=== PATIENT | female | born 1980 | race Hispanic/Latino ===

== ENCOUNTER 2020-06-06 13:40 | Emergency (ER) | payer SELFPAY ==
[2020-06-06 14:43] LABS: Bilirubin Negative (Negative); Blood, Urine Negative (Negative); Clarity Clear (Clear); Glucose, Urine (Dipstick) Normal (Negative); Ketone, Urine Negative (Negative); Leukocyte Negative Leu/uL (Negative); Nitrite Negative (Negative); Protein, Urine (Dipstick) Negative (Neg-Trace); Specific Gravity, Urine 1.007 (1.002-1.036); Urobilinogen Normal mg/dL (Less than 2)
[2020-06-06 15:05] LABS: #Basophils 0.1 thou/uL (0.0-0.2); #Eosinphils 0.1 thou/uL (0.0-0.7); #Lymphocytes 1.7 thou/uL (1.20-3.40); #Monocytes 0.3 thou/uL (0.11-0.59); #Neutrophils 1.7 thou/uL (1.40-6.50); %Basophils 1.6 % (0.0-1.0); %Eosinophils 1.3 % (0.0-10.0); %Lymphocytes 43.4 % (21.0-51.0); %Neutrophils 44.7 % (42.0-75.0); Hemoglobin 13.5 g/dL (12.0-16.0); Mean Corpuscular HGB CONC 33.1 g/dL (32.0-36.0); Mean Corpuscular Hemoglobin 29.6 pg (27.0-31.0); Mean Corpuscular Volume 89.5 fL (78.0-98.0); Mean Platelet Volume 9.5 fL (7.4-10.4); Platelet Count 256 thou/uL (130-400); Red Blood Cell (RBC) Count 4.55 mill/uL (4.20-5.40); White Blood Cell (WBC) Count 3.8 thou/uL (4.8-10.8)
[2020-06-06 15:10] LABS: BHCG - Serum Negative (NEGATIVE); Pregs Control Background? CLEAR/WHITE (CLR/WHITE); Pregs Control Bar Appear? YES (CONTROL BAR)
[2020-06-06 15:35] LABS: ALT (SGPT) 61 U/L (8-55); AST (SGOT) 67 U/L (5-34); Albumin 4.1 g/dL (3.5-5.0); Alkaline Phosphatase 103 U/L (40-110); Anion Gap 11 mmol/L (10-20); BUN (Urea Nitrogen) 11 mg/dL (7.0-18.7); Bilirubin, Total 0.6 mg/dL (0.2-1.2); Calc. Creatinine Clearance 0 mL/min (70-130); Carbon Dioxide 27 mmol/L (22-29); Chloride 104 mmol/L (98-107); Estimated GFR-MDRD 73; Globulin 2.9 g/dL (2.4-3.5); Glucose 86 mg/dL (70-105); Potassium 3.8 mmol/L (3.5-5.1); Sodium 138 mmol/L (136-145)
[2020-06-06 16:27] LABS: Acetaminophen Less than 6.0 mcg/mL (10.0-30.0); Alcohol Less than 10 mg/dL (Less than 10); Salicylate Less than 8.0 mg/dL (15.0-30.0)
== END 2020-06-06 17:18 | disposition home or self-care (01) ==
LOC: ERS 13:40
DX: E86.0 Dehydration (principal); F15.10 Other stimulant abuse, uncomplicated; F32.9 Major depressive disorder, single episode, unspecified; F43.10 Post-traumatic stress disorder, unspecified
CPT/HCPCS: 36415; 80053; 80307; 81003; 84703; 85025; 93005; 96372

== ENCOUNTER 2020-07-10 18:10 | Emergency (ER) | payer SELFPAY ==
[2020-07-10] MEDS ORDERED: Lorazepam 2 MG/ML VIAL ONE (18:28)
== END 2020-07-10 21:47 | disposition home or self-care (01) ==
LOC: ERS 18:10
DX: F41.9 Anxiety disorder, unspecified (principal); F32.9 Major depressive disorder, single episode, unspecified; I10 Essential (primary) hypertension; F98.8 Other specified behavioral and emotional disorders with onset usually occurring in childhood and adolescence
CPT/HCPCS: 96372; 99281; J2060

== ENCOUNTER 2020-08-07 10:37 | Emergency (ER) | payer SELFPAY | END 2020-08-07 14:13 | disposition home or self-care (01) | LOC: ERS 10:37 | DX: J06.9 Acute upper respiratory infection, unspecified (principal); I10 Essential (primary) hypertension | CPT/HCPCS: 87081; 87430; 99283 ==

== ENCOUNTER 2020-08-11 20:44 | Emergency (ER) | payer SELFPAY ==
[2020-08-11 22:26] LABS: Bilirubin Negative (Negative); Blood, Urine Negative (Negative); Clarity Clear (Clear); Glucose, Urine (Dipstick) Normal (Negative); Ketone, Urine Negative (Negative); Leukocyte Negative Leu/uL (Negative); Nitrite Negative (Negative); Protein, Urine (Dipstick) Negative (Neg-Trace); Specific Gravity, Urine 1.011 (1.002-1.036); Urobilinogen Normal mg/dL (Less than 2)
[2020-08-11 22:27] LABS: Pregnancy Test - Urine (BHCG) Negative (Negative); Pregu Control Background? CLEAR/WHITE (CLR/WHITE); Pregu Control Bar Appear? YES (CONTROL BAR); Specific Gravity 1.011 (1.002-1.036)
[2020-08-12 04:23] LABS: SARS-CoV-2 MS2 Positive; SARS-CoV-2 N Gene Negative; SARS-CoV-2 S Gene Negative; SARS-CoV-2 by NAA Not Detected (NotDetected); SARS-CoV-2 orf1ab Negative
== END 2020-08-11 23:48 | disposition home or self-care (01) ==
LOC: ERS 20:44
DX: J02.9 Acute pharyngitis, unspecified (principal); I10 Essential (primary) hypertension; Z20.828 Contact with and (suspected) exposure to other viral communicable diseases; Z79.899 Other long term (current) drug therapy
CPT/HCPCS: 81003; 81025; 87635; 99283; U0003

== ENCOUNTER 2020-08-23 03:49 | Inpatient (IN) | payer SELFPAY ==
[2020-08-23] MEDS ORDERED: cefTRIAXone\\ROCEPHIN 1 GM VIAL ONE (04:53)
[2020-08-23] MEDS ORDERED: Azithromycin 500 MG VIAL ONE (05:37)
[2020-08-23 05:44] LABS: ALT (SGPT) 12 U/L (8-55); AST (SGOT) 16 U/L (5-34); Albumin 2.9 g/dL (3.5-5.0); Alkaline Phosphatase 105 U/L (40-110); Anion Gap 15 mmol/L (10-20); BUN (Urea Nitrogen) 4 mg/dL (7.0-18.7); Bilirubin, Total 0.3 mg/dL (0.2-1.2); Calc. Creatinine Clearance 0 mL/min (70-130); Calcium 8.6 mg/dL (7.8-10.44); Carbon Dioxide 28 mmol/L (22-29); Chloride 93 mmol/L (98-107); Glucose 114 mg/dL (70-105); Potassium 3.2 mmol/L (3.5-5.1); Protein, Total 6.9 g/dL (6.0-8.3); Sodium 133 mmol/L (136-145)
[2020-08-23 06:09] LABS: Band 21 % (5-11); Hemoglobin 10.3 g/dL (12.0-16.0); Lymphocytes 8 % (21-51); MDiff Complete? YES; Mean Corpuscular HGB CONC 32.3 g/dL (32.0-36.0); Mean Corpuscular Hemoglobin 29.1 pg (27.0-31.0); Mean Corpuscular Volume 90.3 fL (78.0-98.0); Mean Platelet Volume 6.8 fL (7.4-10.4); Metamyelocyte 1 % (0-0); Monocytes 5 % (0-10); Neutrophil 65 % (42-75); Platelet Count 526 thou/uL (130-400); Platelet Morphology Comment Appears Increased; RBC Distribution Width 12.4 % (11.5-14.5); Red Blood Cell (RBC) Count 3.54 mill/uL (4.20-5.40); White Blood Cell (WBC) Count 21.1 thou/uL (4.8-10.8)
[2020-08-23 06:28] LABS: BHCG - Serum Negative (NEGATIVE); Pregs Control Background? CLEAR/WHITE (CLR/WHITE); Pregs Control Bar Appear? YES (CONTROL BAR)
[2020-08-23] MEDS ORDERED: Vancomycin 1 GM/200 ML BAG ONE (07:14)
--- NOTE | 2020-08-23 07:51 | CT ---
PRELIMINARY REPORT/[facility]/EMERGENCY AFTER HOURS PROCEDURE EXAM: CTA Chest, With Contrast. DATE/ TIME: 08/23/2020, 6:33 AM INDICATION: Cough. Fever. TECHNIQUE: During the rapid intravenous administration of nonionic contrast, helical CT of the chest was performed utilizing angiographic protocol. MPRs and multiplanar MIPs were generated and reviewed. Exam was performed using one or more of the following dose reduction techniques: automate d exposure control, adjustment of the mA and/or kV according to patient size, or use of iterative reconstruction technique. COMPARISON: PCXR 08/23/2020, 4:44 AM. FINDINGS: The chest x-ray findings corresponds to an area of consolidation in the right lower lobe m easuring approximately 12.0 x 9.0 x 10.7 cm. There are air collections in this region compatible with necrotic tissue. This process extends across the major and minor fissures to involve the middle and upper lobes. Air bronchograms are seen. Trace right pleural effusion is noted. Left lung is clear. The heart is not enlarged. Pulmonary arteries opacify normally; there is no pulmonary embolus. Aort a is without aneurysm or dissection. There is no appreciable adenopathy. Limited imaging of the upper abdomen is unremarkable. Numerous small Schmorl's nodes within the thor acic spine are seen. No acute osseous abnormality is apparent. IMPRESSION: 1. Bronchopneumonia within the right lung mostly involving the right lower lobe with extension into the right middle and right upper lobes. There are areas of necrotic tissue in this region. 2. Trace right pleural effusion. 3. No pulmonary thromboembolism. ELECTRONICALLY SIGNED BY: Elvin Ghotra DO Aug 23, 2020 6:59:20 AM CRM DYNAMICS DEVELOPER This report is intended for review by the ordering physician only, in accordance of law. If you recei ve this report in error, please call [facility] at [phone]. FINAL REPORT Final report by Dr. Gama Emergency after-hours study CT ANGIOGRAM THORAX WITH CONTRAST: (CTA pulmonary angiogram) DATE: 08/23/2020 6:32 AM HISTORY: 40-year-old female with cough and fever TECHNIQUE: IV injection of iodinated contrast. Scan acquisition timing attempted to coincide with iodinated contrast bolus reaching maximal density in pulmonary arteries. 3-D MIP reconstructions. FINDINGS: Large consolidation involving the majority of the volume of the right lower lobe with multiple small cavitations. The infiltrates extend into adjacent portions of right middle lobe and right upper lobe. Left lung is clear. Tiny right pleural effusion. No pneumothorax and no left pleural effusion. No pulmonary thromboembolism. Excellent opacification of pulmonary arteries with good image quality. Normal thoracic aorta. No cardiomegaly or pericardial effusion. Agree with preliminary report by [facility]. IMPRESSION: 1) Large necrotizing pneumonia involving most of the volume of the right lower lobe, and small adjace nt portions of right middle lobe and right upper lobe. 2) No pulmonary thromboembolism. Transcribed Date/Time: 08/23/2020 8:04 AM
--- NOTE | 2020-08-23 07:59 | RAD ---
XR Chest 1 View Portable HISTORY: Cough, shortness of breath COMPARISON: None FINDINGS: The heart size is normal. The lungs are well expanded with airspace opacities in the right perihilar regions of the mid and lower lung zones. The left lung is clear. No pneumothoraces or pleural effusions are seen. IMPRESSION: Right-sided pneumonia
[2020-08-23 08:38] LABS: Amphetamine Detected (NotDetected); Barbiturates Screen Not Detected (NotDetected); Benzodiazepine Screen Not Detected (NotDetected); Cocaine Metabolite Screen Not Detected (NotDetected); Medtox Control Line Valid? VALID (VALID); Medtox Reader # READER 1; Methadone Not Detected (NotDetected); Methamphetamine Detected (NotDetected); Opiate Screen Detected (NotDetected); Oxycodone Screen Not Detected (NotDetected); Phencyclidine (PCP) Not Detected (NotDetected); THC/Cannabinoid Screen Detected (NotDetected); Tricyclic Screen Not Detected (NotDetected)
--- NOTE | 2020-08-23 09:32 | HP ---
The patient currently does not have a primary care physician. She says she has gone to the [facility] once in the summer. CHIEF COMPLAINT: 2 to 3 weeks of coughing. HISTORY OF PRESENT ILLNESS: Ms. Saenz is a pleasant 40-year-old female, who has a history of hypertension. She also says that she has had pneumonia several times. She says in the last 2 to 3 weeks she has been having a cough. It initially started as a dry cough and then she began coughing up some brownish ballard sputum. She also noted some fever off and on and she also noted just recently some blood in the sputum as well. She says that when she blows her nose, it is a little bit bloody. She also notes a decrease in her appetite. She says that she has had a 5-pound weight loss. She has had some night terrors, but she says that this is due to her psychiatric condition. She has not had any night sweats, however. She says that she feels nauseated sometimes and she had diarrhea off and on and she also noticed some hoarseness in her voice in the last several days and then also some slight difficulty with swallowing. As a result of these symptoms, she came to the ER for evaluation. In the ER, they did a lab work, which showed that she had a white count of 21,000. A chest x-ray, which showed a fairly dense and large infiltrate in the right mid lung, which also had some cavitary features and she is being admitted for further evaluation. When asked about risk factors for tuberculosis, she does say that she was incarcerated 90 days in the past and then also she has been homeless off and on. She also admits to using IV drugs in the past as well. REVIEW OF SYSTEMS: All systems were reviewed and are negative except for that mentioned in the history of present illness. PAST MEDICAL HISTORY: Significant for hypertension, endometriosis, herniated disk at C4 through C6, depression and PTSD. PAST SURGICAL HISTORY: She has had a laparotomy for endometriosis. ALLERGIES: NO DRUG ALLERGIES, BUT SHE HAS HAD ALLERGIES TO CATS AND DOGS. SOCIAL HISTORY: She is a former smoker. She says she just smoked a few cigarettes off and on while she was in high school. She admits more to vaping. She denies any alcohol use, but says that she smokes marijuana fairly frequently. She has used IV methamphetamine. She says within the last 12 months, she also used to abuse opioids and was in a methadone program. She has one son and she is engaged. FAMILY HISTORY: Significant for cancer of the throat in her mother and some skin cancers. PHYSICAL EXAMINATION: GENERAL: She is alert and oriented. She appears well developed and well nourished. VITAL SIGNS: Blood pressure was 139/79, heart rate 90, respiratory rate of 19, temperature is 98.5, and O2 saturation is 100% on room air. HEENT: Pupils are equal, round, and reactive. Extraocular muscles are intact. Her sclerae anicteric. Throat, there is no erythema, no exudates. Her dentition is actually fairly good. There are no significant dental caries. Uvula was midline and there is no erythema. NECK: There is no adenopathy, no bruits. LUNGS: She has some rales in the right base and rhonchi, slight E to A changes as well. CARDIOVASCULAR: She has a normal S1 and S2. No S3 or S4. No murmurs, clicks, or rubs. ABDOMEN: Soft, nontender, and nondistended. Positive for bowel sounds. No rebound. No guarding. EXTREMITIES: She has some mild erythema in the calves, and there is some mild warmth. She has no obvious joint effusions. I was able to palpate her dorsalis pedis pulses bilaterally. Skin changes as above. LABORATORY DATA: White blood cell count is 21.1, hemoglobin 10.3, hematocrit is 31.9, and platelet count is 526. Sodium 133, potassium 3.2, chloride is 93, CO2 is 28, BUN of 4, creatinine 0.65, glucose is 114. Serum test was negative. ASSESSMENT: This is a pleasant 40-year-old female, who presents with: 1. Atypical pneumonia. It appears to be almost a cavitary lesion and has been persisting for several weeks. She has risk factors for tuberculosis as well as endocarditis with hematogenous spread. Therefore, we will admit her, start her on broad-spectrum IV antibiotics. We will get an echocardiogram. We will place her in isolation for tuberculosis and consult Pulmonology for further recommendations. 2. Hypertension. We will need to reconcile and restart her blood pressure medicines for her hypertension as well as add p.r.n. medications as well. Job ID: [id number]
[2020-08-23 11:02] LABS: SARS-CoV-2 NAA Rapid Test Not Detected (NotDetected)
[2020-08-23] MEDS ORDERED: Ondansetron ODT 4 MG TAB PO PRN (12:25)
[2020-08-23] MEDS ORDERED: hydrALAZINE 20 MG/ML VIAL SLOW IVP PRN (12:25)
[2020-08-23] MEDS ORDERED: Ondansetron PF 4 MG/2 ML Vial IVP PRN (12:25)
[2020-08-23] MEDS ORDERED: Cepastat Lozenges 1 LOZ PO PRN (12:25)
[2020-08-23] MEDS ORDERED: Iopamidol-370 76% 500 ML 1 ML ONE (13:17)
[2020-08-23] MEDS: Vancomycin 1 GM in Premix Bag 1 BAG IVPB SCH ×2 (15:14→23:59)
[2020-08-23 15:35] VITALS: BMI 22.7
[2020-08-23] MEDS: Piperacillin/Tazobactam 3.375 GM in Sodium Chloride 0.9% 100 ML IVPB SCH ×2 (15:54→20:30)
[2020-08-23] MEDS ORDERED: Famotidine 20 MG TAB PO SCH (16:00)
[2020-08-23] MEDS ORDERED: Enoxaparin Sodium 40 MG/0.4 ML SYRINGE SC SCH (16:00)
[2020-08-23] MEDS ORDERED: FLU VACC QS2020-21(6MOS UP)/PF 60 MCG/0.5 ML SYRINGE IM ONE (18:00)
[2020-08-23] MEDS: Acetaminophen 325 MG TAB PO PRN (21:56)
[2020-08-24] MEDS: Piperacillin/Tazobactam 3.375 GM in Sodium Chloride 0.9% 100 ML IVPB SCH ×4 (01:51→20:54)
[2020-08-24 07:21] LABS: #Eosinphils 0.3 thou/uL (0.0-0.7); #Lymphocytes 2.3 thou/uL (1.20-3.40); #Monocytes 0.9 thou/uL (0.11-0.59); #Neutrophils 5.9 thou/uL (1.40-6.50); %Basophils 0.5 % (0.0-1.0); %Lymphocytes 24.5 % (21.0-51.0); %Monocytes 9.5 % (0.0-10.0); %Neutrophils 62.5 % (42.0-75.0); Hemoglobin 10.5 g/dL (12.0-16.0); Mean Corpuscular HGB CONC 32.8 g/dL (32.0-36.0); Mean Corpuscular Volume 91.3 fL (78.0-98.0); Mean Platelet Volume 6.8 fL (7.4-10.4); Platelet Count 586 thou/uL (130-400); RBC Distribution Width 12.5 % (11.5-14.5); Red Blood Cell (RBC) Count 3.51 mill/uL (4.20-5.40); White Blood Cell (WBC) Count 9.5 thou/uL (4.8-10.8)
[2020-08-24 07:34] LABS: Vancomycin, Trough 10.6 ug/mL
[2020-08-24 07:36] LABS: Anion Gap 14 mmol/L (10-20); BUN (Urea Nitrogen) 5 mg/dL (7.0-18.7); Calc. Creatinine Clearance 121 mL/min (70-130); Calcium 8.2 mg/dL (7.8-10.44); Carbon Dioxide 30 mmol/L (22-29); Chloride 97 mmol/L (98-107); Glucose 91 mg/dL (70-105); Potassium 3.7 mmol/L (3.5-5.1); Sodium 137 mmol/L (136-145)
[2020-08-24] MEDS: Famotidine 20 MG TAB PO SCH ×2 (08:34→20:53)
[2020-08-24] MEDS: Acetaminophen 325 MG TAB PO PRN ×3 (08:35→21:00)
[2020-08-24] MEDS: Enoxaparin Sodium 40 MG/0.4 ML SYRINGE SC SCH (08:35)
[2020-08-24] MEDS ORDERED: Saccharomyces boulardii 250 MG CAP PO SCH (09:00)
[2020-08-24] MEDS: Vancomycin 1 GM in Premix Bag 1 BAG IVPB SCH (10:28)
[2020-08-24] MEDS ORDERED: Vancomycin HCl 1.25 GM in Sodium Chloride 0.9% 250 ML 250 ML IVPB SCH (12:00)
[2020-08-24] MEDS: Benzonatate 100 MG CAP PO PRN (15:37)
--- NOTE | 2020-08-24 16:12 | CON ---
DATE OF CONSULTATION: 08/24/2020 REASON FOR CONSULT: Pneumonia. HISTORY OF PRESENT ILLNESS: A 40-year-old patient who is originally from [place], has been here for a month I think or maybe a year, I am not sure. She basically came with her fiancee and was staying with her [id number]. She has a history of IV heroin use, had been on methadone maintenance in [place]. She also has a history of methamphetamine use, has had a recent relapse and has been sick with respiratory symptoms for the past week approximately. This includes cough, fever, a sensation of choking sometimes. No headaches. Mild dyspnea. Some chest pain in the right lower lung. No abdominal pain. No diarrhea. No genitourinary symptoms. No joint symptoms. PAST MEDICAL HISTORY: Hypertension, herniated disk, history of chronic hepatitis C. PAST SURGICAL HISTORY: Laparotomy, unclear what the indication was. SOCIAL HISTORY: She is from [place] with a history of methamphetamine and heroin addiction, had been on methadone in the past. No smoking history. ALLERGIES: NONE. CURRENT MEDICATIONS: She is on Zosyn and vancomycin. FAMILY HISTORY: Noncontributory PHYSICAL EXAMINATION: VITAL SIGNS: She has been afebrile since admission. Heart rate 82, respirations 20, O2 saturation 99% room air. SKIN: Normal. There is peripheral IV access. She has maybe a couple of blisters and they may reflect herpes simplex in the lateral aspect of the left thigh. HEENT: Ocular movements conjugate. Oral cavity with numerous decaying teeth particularly in the right upper side of her maxilla. Oral cavity without thrush. No other abnormalities. NECK: Supple. No jugular vein distention. LUNGS: Symmetric breath sounds with inspiratory crackles in the right base. No wheezing. HEART: S1, S2. Regular rate. No S3 or S4. ABDOMEN: Soft, not distended or tender. No ascites. No bladder distention. EXTREMITIES: No joint inflammatory activity. No edema. Pulses 1+ in dorsalis pedis. She moves all extremities equally. NEUROLOGIC: She is awake, oriented, follows commands. LABORATORY DATA: White cell count 21,000, now down to 9.5; hemoglobin 10.3; platelets 586; 62% neutrophils. Creatinine 0.65. AST 16, ALT 12, albumin 2.9. Toxicology positive for methamphetamines, cannabinoids, opiates. SARS-CoV2 not detected. Strep pyogenes retrieved from sputum culture. Chest x-ray and CT chest demonstrated necrotizing pneumonia, involving most of the right lower lobe, small adjacent portions of right middle lobe and right upper lobe. ASSESSMENT: IV drug use. Chronic hep C, not treated. Homelessness. Subacute pneumonia with necrotizing features. DISCUSSION: The differential diagnosis includes anaerobic versus gram-negative reno versus Staphylococcus aureus pneumonia. Mycobacterium tuberculosis is less likely but not ruled out. COVID-19 is less likely. At this point, we will check her nasal smear for MRSA colonization. If not present, then we will discontinue vancomycin, maybe then switch to a different regimen, maybe with cefepime or just Rocephin. Does not look like she has developed pleural effusions. So hopefully that is not going to be an issue since the possibility of empyema and anaerobic empyema is a concern. An anaerobic right lung pneumonia or Streptococcus pyogenes pneumonia is a possibility. Fungal pneumonia is less likely. Endocarditis is not likely unless the blood cultures return positive. We will check HIV serology, RPR. Hepatitis C is already known positive. Job ID: [id number]
[2020-08-24 16:21] LABS: HIV (1/2) Antibody/Antigen Non-Reactive (NonReactive); HIV 1/2 INDEX 0.07 S/CO (<1.00)
[2020-08-24 16:22] LABS: Syphilis Antibody Nonreactive (Nonreactive); Syphilis Antibody Index 0.04 S/CO (<1.00 Non-Reactive)
--- NOTE | 2020-08-24 18:17 | PDOC.HOSPP ---
- Subjective Encounter Date: 08/24/20 Encounter Time: 14:00 Subjective: Patient seen and examined for necrotizing pneumonia. Complains of cough with minimal production. Feels generally weak and fatigued. Denies any chest pain or palpitations. - Objective Vital Signs & Weight: Vital Signs (12 hours) Temp Pulse Resp BP Pulse Ox 08/24/20 16:00 98.3 F 77 20 137/83 100 08/24/20 12:00 97.7 F 08/24/20 11:53 97.7 F 82 20 146/82 H 99 08/24/20 08:02 98.2 F 88 20 152/88 H 96 08/24/20 08:00 98.4 F 74 Weight Admit Weight 149 lb 12.8 oz Weight 149 lb 12.8 oz I&O: 08/23/20 08/24/20 08/25/20 06:59 06:59 06:59 Intake Total 1300 1240 Balance 1300 1240 Result Diagrams: 08/24/20 07:01 08/24/20 07:01 Additional Labs: Abnormal Lab Results - Last 48 hrs 08/23/20 04:59: WBC 21.1 H, RBC 3.54 L, Hgb 10.3 L, Hct 31.9 L, Plt Count 526 H, MPV 6.8 L, Band Neuts % (Manual) 21 H, Lymphocytes % (Manual) 8 L, Plt Morphology Comment Appears Increased H 08/23/20 04:59: Sodium 133 L, Potassium 3.2 L, Chloride 93 L, BUN 4 L, Albumin 2.9 L, Globulin 4.0 H, Albumin/Globulin Ratio 0.7 L 08/23/20 08:01: Urine Opiates Screen Detected H, Ur Amphetamines Screen Detected H, U Methamphetamines Scrn Detected H, U Cannabinoids Screen Detected H 08/24/20 07:01: Chloride 97 L, Carbon Dioxide 30 H, BUN 5 L 08/24/20 07:01: RBC 3.51 L, Hgb 10.5 L, Hct 32.0 L, Plt Count 586 H, MPV 6.8 L, Monocytes # 0.9 H Microbiology - Entire Visit 08/23/20 12:30 Sputum Respiratory Culture - Preliminary Streptococcus pyogenes 08/23/20 05:06 Venous blood - Right Arm Blood Culture - Preliminary Specimen has been received and culture in progress. No Growth to date. 08/23/20 05:06 Venous blood - Left Arm Blood Culture - Preliminary Specimen has been received and culture in progress. No Growth to date. Radiology Reviewed by me: Yes (CT angiogram of the chestpneumonia) Hospitalist ROS - Review of Systems Cardiovascular: denies: chest pain, palpitations, orthopnea, paroxysmal noc. dyspnea, edema, light headedness, other Gastrointestinal: denies: nausea, vomiting, abdominal pain, diarrhea, constipation, melena, hematochezia, other - Medication Medications: Active Medications Generic Name Dose Route Start Last Admin Trade Name Freq PRN Reason Stop Dose Admin Acetaminophen 650 mg 08/23/20 12:25 08/24/20 15:37 Acetaminophen 325 Mg Tab PO 650 mg Q4H PRN Administration Headache/Fever/Mild Pain (1-3) Benzonatate 100 mg 08/23/20 12:25 08/24/20 15:37 Benzonatate 100 Mg Cap PO 100 mg Q6H PRN Administration Cough Enoxaparin Sodium 40 mg 08/24/20 09:00 08/24/20 08:35 Enoxaparin Sodium 40 Mg/0.4 Ml Syringe SC 40 mg 0900 DANIELLE Administration Famotidine 20 mg 08/24/20 09:00 08/24/20 08:34 Famotidine 20 Mg Tab PO 20 mg BID DANIELLE Administration Piperacillin Sod/Tazobactam 100 mls @ 200 mls/hr 08/23/20 14:00 08/24/20 15:37 Sod 3.375 gm/ Sodium Chloride IVPB 100 mls 0200,0800,1400,2000 DANIELLE Administration Vancomycin HCl 1.25 gm/ Sodium 250 mls @ 166.667 mls/hr 08/24/20 12:00 08/24/20 13:01 Chloride IVPB 250 mls 0400,1200,2000 DANIELLE Administration - Exam General Appearance: ill appearing Neck: supple, symmetric, no JVD, no thyromegaly Heart: RRR, no gallops, no rubs, normal peripheral pulses Respiratory: no wheezes, normal chest expansion, rales, rhonchi Gastrointestinal: soft, normal bowel sounds, no guarding, no rigidity Extremities: no cyanosis, no clubbing Neurological: no new deficit Musculoskeletal: generalized weakness Psychiatric: normal affect, A&O x 3 Hosp A/P - Plan DVT proph w/SCDs Severe sepsis due to right-sided large necrotizing pneumoniaPOA Generalized weakness due to above Hyponatremia/hypokalemia Moderate protein calorie malnutrition Chronic anemia due to nutritional deficiency Thrombocytosis probably reactive Amphetamine/cannabis/opiate abuse Recurrent genital herpes infection Plan: Continue vancomycin with Zosyn. Monitor vancomycin level. Infectious disease consultation. Change diet to regular. Probiotics. Continue Lovenox for DVT prophylaxis. Continue supportive care. Counseled on drug cessation. Replace electrolytes. AM labs. Continue other medications as above
[2020-08-24] MEDS ORDERED: Potassium Chloride 20 MEQ TAB PO SCH (18:30)
[2020-08-24] MEDS: NS 0.9% w/ 20 MEQ KCL 1,000 ML/1,000 ML BAG IV SCH (19:20)
[2020-08-24] MEDS: Melatonin 3 MG TAB PO PRN (20:54)
[2020-08-24] MEDS: Acyclovir 400 mg Tablet PO SCH (20:54)
[2020-08-25] MEDS: Piperacillin/Tazobactam 3.375 GM in Sodium Chloride 0.9% 100 ML IVPB SCH ×3 (03:18→14:32)
[2020-08-25] MEDS: Acetaminophen 325 MG TAB PO PRN ×4 (04:17→22:41)
[2020-08-25 06:50] LABS: #Eosinphils 0.2 thou/uL (0.0-0.7); #Monocytes 0.6 thou/uL (0.11-0.59); #Neutrophils 9.9 thou/uL (1.40-6.50); %Eosinophils 1.5 % (0.0-10.0); %Lymphocytes 15.7 % (21.0-51.0); %Monocytes 4.8 % (0.0-10.0); %Neutrophils 78.1 % (42.0-75.0); Hemoglobin 10.7 g/dL (12.0-16.0); Mean Corpuscular HGB CONC 32.5 g/dL (32.0-36.0); Mean Corpuscular Hemoglobin 29.8 pg (27.0-31.0); Mean Corpuscular Volume 91.6 fL (78.0-98.0); Mean Platelet Volume 6.9 fL (7.4-10.4); Platelet Count 729 thou/uL (130-400); RBC Distribution Width 12.4 % (11.5-14.5); Red Blood Cell (RBC) Count 3.59 mill/uL (4.20-5.40); White Blood Cell (WBC) Count 12.6 thou/uL (4.8-10.8)
[2020-08-25 07:16] LABS: ALT (SGPT) 12 U/L (8-55); AST (SGOT) 18 U/L (5-34); Albumin 2.9 g/dL (3.5-5.0); Alkaline Phosphatase 107 U/L (40-110); Anion Gap 15 mmol/L (10-20); BUN (Urea Nitrogen) 6 mg/dL (7.0-18.7); Bilirubin, Total Less than 0.2 mg/dL (0.2-1.2); Calc. Creatinine Clearance 114 mL/min (70-130); Calcium 8.5 mg/dL (7.8-10.44); Carbon Dioxide 26 mmol/L (22-29); Chloride 99 mmol/L (98-107); Globulin 4.4 g/dL (2.4-3.5); Glucose 91 mg/dL (70-105); Magnesium 2.2 mg/dL (1.6-2.6); Phosphorus 3.4 mg/dL (2.3-4.7); Potassium 4.6 mmol/L (3.5-5.1); Protein, Total 7.3 g/dL (6.0-8.3); Sodium 135 mmol/L (136-145)
[2020-08-25] MEDS: Enoxaparin Sodium 40 MG/0.4 ML SYRINGE SC SCH (08:06)
[2020-08-25] MEDS: Acyclovir 400 mg Tablet PO SCH ×3 (08:06→20:43)
[2020-08-25] MEDS: Famotidine 20 MG TAB PO SCH ×2 (08:06→20:42)
[2020-08-25] MEDS: Saccharomyces boulardii 250 MG CAP PO SCH (08:07)
[2020-08-25] MEDS: Benzonatate 100 MG CAP PO PRN ×3 (08:28→20:43)
[2020-08-25] MEDS: NS 0.9% w/ 20 MEQ KCL 1,000 ML/1,000 ML BAG IV SCH (11:21)
--- NOTE | 2020-08-25 12:04 | CON ---
DATE OF CONSULTATION: 08/24/2020 HISTORY OF PRESENT ILLNESS: Ms. Saenz is a 40-year-old female. She is here from [place]. She is a chronic and intermittent methamphetamine user. She uses it intravenously and also smokes it. She admittedly has very poor dentition, surprisingly asked me if her teeth were contributing to the fact that she has pneumonia. She says she has been sick for two weeks. She subsequently was admitted with a diagnosis of pneumonia. PAST MEDICAL HISTORY: Remarkable for, 1. Hypertension. 2. History of herniated disk in her neck. 3. History of depression. 4. History of surgery for endometriosis. SOCIAL HISTORY: She is a drug user. She does not smoke cigarettes. She says she vapes. She admits she is still using drugs, but she says she is in town waiting for her boyfriend/fiance to get out of senior care. Once he gets out of senior care, they plan on going back to [place]. FAMILY HISTORY: Negative for lung disease in early age. REVIEW OF SYSTEMS: Otherwise negative. PHYSICAL EXAMINATION: GENERAL: She is in no distress, talking in complete sentences on room air. VITAL SIGNS: She is afebrile. Heart rate 82, respiratory rate 20, oximetry is 99, blood pressure 146/82. HEAD AND NECK: Unremarkable. LUNGS: Remarkable for fine crackles heard at the right base. HEART: Regular rhythm. No S3. No murmur. ABDOMEN: Soft and nontender. EXTREMITIES: Without clubbing, cyanosis, or edema. NEUROLOGIC: Nonfocal. IMAGING: All images have been reviewed. LABORATORY DATA: White count is 9.5, remarkable for sodium of 137, potassium of 3.7, bicarb 30, BUN 5, creatinine 0.65. She has an alveolar infiltrate in the superior segment of the right lower lobe. She has some necrosis on CT. IMPRESSION: Necrotizing pneumonia most likely aspiration-mediated secondary to very poor dentition. enteric IV antibiotic for therapy for 24 hours. Creatinine microbial therapy at 48 hours using either Cleocin, perhaps in combination with Levaquin. If she remains stable on room air, she could probably have this treated after 48 hours with enteral antibiotics and go back to [place]. I do not see any clear indication to keep her in the hospital more than 48 hours for IV antibiotics. We will sign off. This is a 50 min consult with greater than 50% of the time spent on the unit with coordination of care. Job ID: [id number] MTDD
[2020-08-25] MEDS: Meropenem 1 GM in Sodium Chloride 0.9% 100 ML IVPB SCH (16:32)
[2020-08-25] MEDS ORDERED: Loperamide HCl 2 MG CAP PO PRN (17:52)
[2020-08-25] MEDS: Melatonin 3 MG TAB PO PRN (22:41)
--- NOTE | 2020-08-25 23:31 | PDOC.HOSPP ---
- Subjective Encounter Date: 08/25/20 Encounter Time: 14:00 Subjective: Patient seen and examined for necrotizing pneumonia. Continues to have cough productive of small amount of sputum. Denies any chest pain, shortness of breath on exertion or fever. - Objective Vital Signs & Weight: Vital Signs (12 hours) Temp Pulse Resp BP Pulse Ox 08/25/20 19:44 98.0 F 96 18 150/90 H 97 Weight Admit Weight 149 lb 12.8 oz Weight 149 lb 12.8 oz I&O: 08/24/20 08/25/20 08/26/20 06:59 06:59 06:59 Intake Total 1300 9280 4960 Output Total 2400 Balance 1300 9280 2560 Result Diagrams: 08/25/20 06:13 08/25/20 06:13 Additional Labs: Abnormal Lab Results - Last 48 hrs 08/24/20 07:01: Chloride 97 L, Carbon Dioxide 30 H, BUN 5 L 08/24/20 07:01: RBC 3.51 L, Hgb 10.5 L, Hct 32.0 L, Plt Count 586 H, MPV 6.8 L, Monocytes # 0.9 H 08/25/20 06:13: Sodium 135 L, BUN 6 L, Total Bilirubin Less than 0.2 L, Albumin 2.9 L, Globulin 4.4 H, Albumin/Globulin Ratio 0.7 L 08/25/20 06:13: WBC 12.6 H, RBC 3.59 L, Hgb 10.7 L, Hct 32.9 L, Plt Count 729 H, MPV 6.9 L, Neutrophils % 78.1 H, Lymphocytes % 15.7 L, Neutrophils # 9.9 H, Monocytes # 0.6 H Microbiology - Entire Visit 08/24/20 16:03 Nasal swab MRSA Screen - Final 08/23/20 12:30 Sputum Respiratory Culture - Final Streptococcus pyogenes 08/23/20 05:06 Venous blood - Right Arm Blood Culture - Preliminary NO GROWTH AT 48 HOURS 08/23/20 05:06 Venous blood - Left Arm Blood Culture - Preliminary NO GROWTH AT 48 HOURS 08/23/20 19:45 Sputum - Fluid Direct Acid Fast Bacilli Smear - Final 08/23/20 19:45 Sputum - Fluid Acid Fast Bacilli Smear - Pending 08/23/20 19:45 Sputum - Fluid Acid Fast Bacilli Culture - Pending Radiology Reviewed by me: Yes (CT chest reviewed) Hospitalist ROS - Review of Systems Cardiovascular: denies: chest pain, palpitations, orthopnea, paroxysmal noc. dyspnea, edema, light headedness, other Genitourinary: denies: dysuria, frequency, incontinence, hematuria, retention, other - Medication Medications: Active Medications Generic Name Dose Route Start Last Admin Trade Name Freq PRN Reason Stop Dose Admin Acetaminophen 650 mg 08/23/20 12:25 08/25/20 22:41 Acetaminophen 325 Mg Tab PO 650 mg Q4H PRN Administration Headache/Fever/Mild Pain (1-3) Acyclovir 400 mg 08/24/20 21:00 08/25/20 20:43 Acyclovir 400 Mg Tablet PO 400 mg TID DANIELLE Administration Benzonatate 100 mg 08/23/20 12:25 08/25/20 20:43 Benzonatate 100 Mg Cap PO 100 mg Q6H PRN Administration Cough Enoxaparin Sodium 40 mg 08/24/20 09:00 08/25/20 08:06 Enoxaparin Sodium 40 Mg/0.4 Ml Syringe SC 40 mg 0900 DANIELLE Administration Famotidine 20 mg 08/24/20 09:00 08/25/20 20:42 Famotidine 20 Mg Tab PO 20 mg BID DANIELLE Administration Meropenem 1 gm/ Sodium 100 mls @ 200 mls/hr 08/25/20 16:00 08/25/20 16:32 Chloride IVPB 100 mls 0800,1600,2359 DANIELLE Administration Melatonin 3 mg 08/24/20 20:42 08/25/20 22:41 Melatonin 3 Mg Tab PO 3 mg HS PRN Administration Insomnia Saccharomyces Boulardii 250 mg 08/25/20 09:00 08/25/20 08:07 Saccharomyces Boulardii 250 Mg Cap PO 250 mg DAILY DANIELLE Administration - Exam General Appearance: ill appearing Neck: supple, no JVD Heart: RRR, no gallops, no rubs, normal peripheral pulses Respiratory: no wheezes, normal chest expansion, no tachypnea, rhonchi Gastrointestinal: non-tender, non-distended, normal bowel sounds, no guarding, no rigidity Extremities: no cyanosis, no clubbing, no edema Musculoskeletal: generalized weakness Psychiatric: normal affect, A&O x 3 Hosp A/P - Plan DVT proph w/SCDs Severe sepsis due to right-sided large necrotizing pneumonia Generalized weakness due to above Hyponatremia/hypokalemia Moderate protein calorie malnutrition Chronic anemia due to nutritional deficiency Thrombocytosis probably reactive Amphetamine/cannabis/opiate abuse Recurrent genital herpes infection Dental caries Plan: Zosyn changed to meropenem. Continue vancomycin with level monitoring. Continue probiotics. DC potassium supplementation. Add Chlorhexidine mouthwash. A.m. labs. Continue other medications as above 08/24 Continue vancomycin with Zosyn. Monitor vancomycin level. Infectious disease consultation. Change diet to regular. Probiotics. Continue Lovenox for DVT prophylaxis. Continue supportive care. Counseled on drug cessation. Replace electrolytes. AM labs. Continue other medications as above
[2020-08-26] MEDS: Meropenem 1 GM in Sodium Chloride 0.9% 100 ML IVPB SCH ×4 (00:26→23:33)
[2020-08-26] MEDS: Acetaminophen 325 MG TAB PO PRN ×3 (03:11→20:24)
[2020-08-26] MEDS: Benzonatate 100 MG CAP PO PRN ×2 (03:11→20:24)
[2020-08-26 06:47] LABS: #Basophils 0.1 thou/uL (0.0-0.2); #Eosinphils 0.2 thou/uL (0.0-0.7); #Lymphocytes 1.8 thou/uL (1.20-3.40); #Monocytes 0.5 thou/uL (0.11-0.59); #Neutrophils 7.6 thou/uL (1.40-6.50); %Basophils 0.6 % (0.0-1.0); %Eosinophils 2.2 % (0.0-10.0); %Monocytes 4.8 % (0.0-10.0); %Neutrophils 74.4 % (42.0-75.0); Hemoglobin 12.3 g/dL (12.0-16.0); Mean Corpuscular HGB CONC 33.1 g/dL (32.0-36.0); Mean Corpuscular Volume 90.9 fL (78.0-98.0); Mean Platelet Volume 6.8 fL (7.4-10.4); Platelet Count 886 thou/uL (130-400); RBC Distribution Width 12.6 % (11.5-14.5); Red Blood Cell (RBC) Count 4.11 mill/uL (4.20-5.40); White Blood Cell (WBC) Count 10.2 thou/uL (4.8-10.8)
[2020-08-26 07:09] LABS: Anion Gap 15 mmol/L (10-20); BUN (Urea Nitrogen) 6 mg/dL (7.0-18.7); Calc. Creatinine Clearance 121 mL/min (70-130); Carbon Dioxide 26 mmol/L (22-29); Chloride 98 mmol/L (98-107); Glucose 99 mg/dL (70-105); Potassium 4.5 mmol/L (3.5-5.1); Sodium 134 mmol/L (136-145)
[2020-08-26] MEDS: Enoxaparin Sodium 40 MG/0.4 ML SYRINGE SC SCH (08:10)
[2020-08-26] MEDS: Chlorhexidine Gluconate 15 ML UDCUP SSP SCH ×2 (08:10→20:26)
[2020-08-26] MEDS: Acyclovir 400 mg Tablet PO SCH ×3 (08:11→20:24)
[2020-08-26] MEDS: Famotidine 20 MG TAB PO SCH ×2 (08:11→20:24)
[2020-08-26] MEDS: Saccharomyces boulardii 250 MG CAP PO SCH (08:11)
--- NOTE | 2020-08-26 13:46 | PDOC.HOSPP ---
- Subjective Encounter Date: 08/26/20 Subjective: The patient stated that her cough is better than yesterday. She still complaining of pleuritic chest pain with deep inspiration. - Objective Vital Signs & Weight: Vital Signs (12 hours) Temp Pulse Resp BP Pulse Ox 08/26/20 08:24 164/94 H 08/26/20 08:00 98.2 F 66 16 176/109 H 97 08/26/20 03:17 98.2 F 157/88 H Weight Admit Weight 149 lb 12.8 oz Weight 149 lb 12.8 oz I&O: 08/25/20 08/26/20 08/27/20 06:59 06:59 06:59 Intake Total 9280 7470 Output Total 2400 Balance 9280 5070 Result Diagrams: 08/26/20 06:24 08/26/20 06:24 Hospitalist ROS - Medication Medications: Active Medications Generic Name Dose Route Start Last Admin Trade Name Freq PRN Reason Stop Dose Admin Acetaminophen 650 mg 08/23/20 12:25 08/26/20 08:11 Acetaminophen 325 Mg Tab PO 650 mg Q4H PRN Administration Headache/Fever/Mild Pain (1-3) Acyclovir 400 mg 08/24/20 21:00 08/26/20 08:11 Acyclovir 400 Mg Tablet PO 400 mg TID DANIELLE Administration Benzonatate 100 mg 08/23/20 12:25 08/26/20 03:11 Benzonatate 100 Mg Cap PO 100 mg Q6H PRN Administration Cough Chlorhexidine Gluconate 15 ml 08/26/20 09:00 08/26/20 08:10 Chlorhexidine Gluconate 15 Ml Udcup SSP 15 ml BID DANIELLE Administration Enoxaparin Sodium 40 mg 08/24/20 09:00 08/26/20 08:10 Enoxaparin Sodium 40 Mg/0.4 Ml Syringe SC 40 mg 0900 DANIELLE Administration Famotidine 20 mg 08/24/20 09:00 08/26/20 08:11 Famotidine 20 Mg Tab PO 20 mg BID DANIELLE Administration Meropenem 1 gm/ Sodium 100 mls @ 200 mls/hr 08/25/20 16:00 08/26/20 08:46 Chloride IVPB 100 mls 0800,1600,2359 DANIELLE Administration Melatonin 3 mg 08/24/20 20:42 08/25/20 22:41 Melatonin 3 Mg Tab PO 3 mg HS PRN Administration Insomnia Saccharomyces Boulardii 250 mg 08/25/20 09:00 08/26/20 08:11 Saccharomyces Boulardii 250 Mg Cap PO 250 mg DAILY DANIELLE Administration - Exam General Appearance: awake alert ENT: normocephalic atraumatic Neck: supple, no JVD Respiratory: normal chest expansion, no tachypnea, rhonchi Gastrointestinal: soft Extremities: no cyanosis, no clubbing Hosp A/P - Plan Severe sepsis due to right-sided large necrotizing pneumonia Generalized weakness due to above Hyponatremia/hypokalemia Moderate protein calorie malnutrition Chronic anemia due to nutritional deficiency Thrombocytosis probably reactive Amphetamine/cannabis/opiate abuse Recurrent genital herpes infection Dental caries Plan: 08/26 Sputum culture showing growth of Streptococcus pyogenes. Pending final sensitivity data. Continue current antibiotics. 08/25 Zosyn changed to meropenem. Continue vancomycin with level monitoring. Continue probiotics. DC potassium supplementation. Add Chlorhexidine mouthwash. A.m. labs. Continue other medications as above 08/24 Continue vancomycin with Zosyn. Monitor vancomycin level. Infectious disease consultation. Change diet to regular. Probiotics. Continue Lovenox for DVT prophylaxis. Continue supportive care. Counseled on drug cessation. Replace electrolytes. AM labs. Continue other medications as above
[2020-08-26] MEDS: Melatonin 3 MG TAB PO PRN (20:24)
[2020-08-26] MEDS ORDERED: diphenhydrAMINE 25 MG CAP PO PRN (23:51)
[2020-08-27] MEDS ORDERED: Loperamide HCl 1 MG/7.5 ML UDCUP PO SCH (00:30)
[2020-08-27] MEDS: Benzonatate 100 MG CAP PO PRN (03:08)
[2020-08-27] MEDS: Acetaminophen 325 MG TAB PO PRN ×2 (05:26→09:14)
[2020-08-27] MEDS ORDERED: MEROPENEM 1 GM/50 ML 1 GM in Premix Bag 1 BAG IVPB SCH (08:00)
[2020-08-27] MEDS: Chlorhexidine Gluconate 15 ML UDCUP SSP SCH (08:05)
[2020-08-27] MEDS: Saccharomyces boulardii 250 MG CAP PO SCH (08:06)
[2020-08-27] MEDS: Famotidine 20 MG TAB PO SCH (08:06)
[2020-08-27] MEDS: Acyclovir 400 mg Tablet PO SCH (08:06)
[2020-08-27] MEDS: Enoxaparin Sodium 40 MG/0.4 ML SYRINGE SC SCH (08:07)
[2020-08-27 08:34] VITALS: TEMP 97.7
[2020-08-27] MEDS ORDERED: cloNIDine 0.1 MG TAB PO PRN (11:09)
[2020-08-27] MEDS ORDERED: traMADol HCl 50 MG TAB PO PRN (11:09)
[2020-08-27 14:34] VITALS: BP 129/84
[2020-08-27] MEDS ORDERED: cloNIDine 0.1 MG TAB PO SCH (15:00)
--- NOTE | 2020-08-27 23:36 | PDOC.DS.DS ---
Provider - Provider Date of Admission: 08/23/20 12:25 Date of Discharge: 08/27/20 Admitting Provider: Rudy Gee MD Consultations: Infectious Disease, Pulmonary Primary Care Physician: NO PCP PROVIDER Course - Hospital Course Hospital Course: Patient is a 40-year-old female with polysubstance abuse presented to the emergency room with 2-3 week history of cough. Her workup in the emergency room was consistent with large right sided necrotizing pneumonia. She was started on broad-spectrum antibiotics. She was evaluated by pulmonary and infectious disease. Her antibiotics were changed to meropenem per infectious disease. Blood cultures have remained negative. Respiratory culture was positive for strep pyogenes. Acid fast bacilli testing is pending at the time of discharge. HIV, influenza and Coban testing were negative. Urine drug screen was positive for opiates, amphetamine, methamphetamine and cannabinoid. She also had some electrolyte abnormalities which has been replaced. WBC count on admission was 21.1 and at discharge is 10.2. Patient has been cleared by infectious disease for discharge. Dr. Davis recommended Augmentin for 4 weeks. Final diagnosis: Severe sepsis due to right-sided large necrotizing pneumonia Generalized weakness due to above Hyponatremia/hypokalemia Moderate protein calorie malnutrition Chronic anemia due to nutritional deficiency Thrombocytosis probably reactive Amphetamine/cannabis/opiate abuse Recurrent genital herpes infection Dental caries Time coordinating discharge of this patient was 33 minutes. Patient was extensively counseled on lifestyle modification including drug cessation. Importance of follow-up with infectious disease was emphasized. Resuscitation Status: 08/23/20 08:54 Resuscitation Status Routine Resuscitation Status: FULL: Full Resuscitation - Labs Lab Results: 08/26/20 06:24 08/26/20 06:24 Abnormal Lab Results - Last 48 hrs 08/26/20 06:24: Sodium 134 L, BUN 6 L 08/26/20 06:24: RBC 4.11 L, Plt Count 886 H, MPV 6.8 L, Lymphocytes % 18.0 L, Neutrophils # 7.6 H Microbiology - Entire Visit 08/23/20 19:45 Sputum - Fluid Direct Acid Fast Bacilli Smear - Final 08/23/20 19:45 Sputum - Fluid Acid Fast Bacilli Smear - Pending 08/23/20 19:45 Sputum - Fluid Acid Fast Bacilli Culture - Preliminary Specimen has been received and culture in progress. No Growth to date. 08/24/20 16:03 Nasal swab MRSA Screen - Final 08/23/20 12:30 Sputum Respiratory Culture - Final Streptococcus pyogenes 08/23/20 05:06 Venous blood - Right Arm Blood Culture - Preliminary NO GROWTH AT 48 HOURS 08/23/20 05:06 Venous blood - Left Arm Blood Culture - Preliminary NO GROWTH AT 48 HOURS - Physical Exam Vitals: Vital Signs (12 hours) Temp Pulse Resp BP 08/27/20 14:10 97.7 F 101 H 16 129/84 Weight Admit Weight 149 lb 12.8 oz Weight 149 lb 12.8 oz Physical Exam: The patient was seen and examined on the day of discharge. Plan - Discharge Medications Prescriptions: Amoxicillin/Potassium Clav [Augmentin] 875 mg PO Q12HR #56 tab Home Medications: Medication Instructions Recorded Confirmed Type Lisinopril 10 mg PO BID 08/23/20 08/23/20 History Acyclovir 400 mg PO TID PRN 08/24/20 08/24/20 History Amoxicillin/Potassium Clav 875 mg PO Q12HR #56 tab 08/27/20 Rx [Augmentin] Allergies: cat dander Allergy (Verified 08/23/20 17:18) dog dander Allergy (Verified 08/23/20 17:18) - Follow up Plan Referrals: Carlin Davis MD [Active] - 2-3 Weeks Disposition: HOME Quality - Care Measures CORE MEASURES:: N/A
== END 2020-08-27 14:25 | disposition home or self-care (01) | DRG 871 ==
LOC: ERS 03:49 → ERHOLD 07:32 → OBSVTOIN 12:25 → T4-A 14:09
PROVIDERS: ADMIT Internal Medicine; ATTEND Internal Medicine
PROC: 8E0ZXY6 Isolation (ICD-10-PCS; principal; 2020-08-23)
DX: A40.0 Sepsis due to streptococcus, group A (principal); J85.0 Gangrene and necrosis of lung; E87.1 Hypo-osmolality and hyponatremia; E44.0 Moderate protein-calorie malnutrition; Z20.822 Contact with and (suspected) exposure to COVID-19; R65.20 Severe sepsis without septic shock; E87.6 Hypokalemia; D53.9 Nutritional anemia, unspecified; D69.6 Thrombocytopenia, unspecified; F15.10 Other stimulant abuse, uncomplicated; F12.10 Cannabis abuse, uncomplicated; F11.10 Opioid abuse, uncomplicated; A60.00 Herpesviral infection of urogenital system, unspecified; K02.9 Dental caries, unspecified; I10 Essential (primary) hypertension; F32.9 Major depressive disorder, single episode, unspecified; F43.10 Post-traumatic stress disorder, unspecified; M50.221 Other cervical disc displacement at C4-C5 level; B18.2 Chronic viral hepatitis C; Z28.21 Immunization not carried out because of patient refusal; Z68.22 Body mass index [BMI] 22.0-22.9, adult; Z79.899 Other long term (current) drug therapy; Z91.09 Other allergy status, other than to drugs and biological substances; Z87.891 Personal history of nicotine dependence; Z59.0 Homelessness
CPT/HCPCS: 0240U; 36415; 71045; 71275; 80048; 80053; 80202; 80306; 83605; 83735; 84100; 84703; 85025; 86480; 86780; 87040; 87070; 87077; 87081; 87116; 87205; 87206; 87389; 96365; 96366; 96367; G0378; J0456; J0696; J1650; J2185; J2543; J3370; J3480; J3490; J7050; Q0163; Q9967

== ENCOUNTER 2020-10-24 07:08 | Emergency (ER) | payer SELFPAY ==
[2020-10-24] MEDS ORDERED: Fluorescein Opthalmic Strip ONE (07:30)
[2020-10-24] MEDS ORDERED: Proparacaine 0.5% Opth 15 ML BOT ONE (07:30)
[2020-10-24] MEDS ORDERED: Ibuprofen 200 MG TAB ONE (08:54)
== END 2020-10-24 08:55 | disposition home or self-care (01) ==
LOC: ERS 07:08
DX: S05.01XA Injury of conjunctiva and corneal abrasion without foreign body, right eye, initial encounter (principal); I10 Essential (primary) hypertension
CPT/HCPCS: 99282

== ENCOUNTER 2020-10-28 07:14 | Emergency (ER) | payer SELFPAY ==
[2020-10-28] MEDS ORDERED: Ketorolac Tromethamine 30 MG/ML VIAL ONE (07:39)
[2020-10-28] MEDS ORDERED: Acetaminophen 500 MG TAB ONE (07:39)
[2020-10-28] MEDS ORDERED: Boostrix 0.5 ML (Tdap) VIAL ONE (07:46)
[2020-10-28] MEDS ORDERED: Proparacaine 0.5% Opth 15 ML BOT ONE (07:50)
[2020-10-28] MEDS ORDERED: Fluorescein Opthalmic Strip ONE (07:51)
== END 2020-10-28 09:20 | disposition home or self-care (01) ==
LOC: EEVIPCON 07:14 → ERS 07:14
DX: S00.03XA Contusion of scalp, initial encounter (principal); I10 Essential (primary) hypertension; R00.0 Tachycardia, unspecified; H16.201 Unspecified keratoconjunctivitis, right eye; Y04.0XXA Assault by unarmed brawl or fight, initial encounter
CPT/HCPCS: 70450; 70486; 90471; 90715; 96372; J1885

== ENCOUNTER 2020-11-27 02:52 | Emergency (ER) | payer SELFPAY | END 2020-11-27 03:29 | disposition home or self-care (01) | LOC: ERS 02:52 | DX: F32.9 Major depressive disorder, single episode, unspecified (principal); F41.9 Anxiety disorder, unspecified; F19.10 Other psychoactive substance abuse, uncomplicated; I10 Essential (primary) hypertension; Z79.899 Other long term (current) drug therapy | CPT/HCPCS: 99281 ==

== ENCOUNTER 2021-01-31 10:57 | Emergency (ER) | payer SELFPAY ==
[2021-01-31] MEDS ORDERED: Naproxen 500 MG TAB ONE (14:12)
== END 2021-01-31 14:19 | disposition home or self-care (01) ==
LOC: ERS 10:57
DX: M25.511 Pain in right shoulder (principal); K02.9 Dental caries, unspecified; I10 Essential (primary) hypertension

== ENCOUNTER 2021-06-23 04:23 | Emergency (ER) | payer SELFPAY | END 2021-06-23 05:41 | disposition home or self-care (01) | LOC: ERS 04:23 | DX: R51.9 Headache, unspecified (principal); I10 Essential (primary) hypertension; F11.10 Opioid abuse, uncomplicated | CPT/HCPCS: 99284 ==